=== PATIENT | male | born 1970 | race Hispanic/Latino ===

== ENCOUNTER 2025-02-06 05:38 | Emergency (ER) | payer BC, OTHER ==
[~2025-02-06] VITALS: Ht 167.6 cm; Wt 104.3 kg
[2025-02-06 06:18] VITALS: TEMP 98.1
[2025-02-06 06:39] LABS: BASOPHILS % 0.6 % (0.0-1.0); EOSINOPHILS % 2.4 % (0.0-6.0); LYMPHOCYTES % 33.5 % (18.0-39.1); MONOCYTES % 8.3 % (4.4-11.3); NEUTROPHILS % 54.8 % (38.7-80.0); RED CELL DISTRIBUTION WIDTH 13.5 % (11.7-14.4)
[2025-02-06 06:56] LABS: EST GLOMERULAR FILTRATION RATE 104.0 ML/MIN (>=60)
[2025-02-06] MEDS: DONNATAL/LIDOCAINE/MAALOX 30 ML SUSP PO ONE (07:50)
[2025-02-06 08:00] VITALS: PULSE 65; RESP 17; O2SAT 97
== END 2025-02-06 09:03 | disposition home or self-care (01) ==
LOC: ER 06:20
DX: K21.9 Gastro-esophageal reflux disease without esophagitis (principal); K22.4 Dyskinesia of esophagus; I10 Essential (primary) hypertension; E78.5 Hyperlipidemia, unspecified; E66.9 Obesity, unspecified; F17.210 Nicotine dependence, cigarettes, uncomplicated
CPT/HCPCS: 36415; 71046; 80053; 83690; 84484; 85025; 93005; 99284